=== PATIENT | male | born 1965 | race Caucasian/White ===

== ENCOUNTER 2017-04-06 02:17 | Observation (INO) | payer OTHER ==
[~2017-04-06] VITALS: Ht 188 cm; Wt 93.1 kg
--- NOTE | ~2017-04-06 | HC ---
[facility] [place] [address] CONSULTATION Name: AYLEENOTILIA Roslyn Room #: 301-I [facility] David Bryson#: [id number] Admission: 04/06/17 Attend Phys: Johnathan Pelletier Discharge: Date of : 69 Report #: [id number] THIS REPORT FOR: //name// CC: SUKI physician/PCP Johnathan Pelletier PRIMARY CARE PHYSICIAN: [facility]. CHIEF COMPLAINT: Chest pain. HISTORY OF PRESENT ILLNESS: The patient is a 52-year-old male with a history of multivessel coronary artery disease and prior PCI. He had an episode of resting chest discomfort that woke him up in the middle of the night this morning. It radiated to his left shoulder. It was described as a pressure sensation and severe in nature. By the time he got to the emergency room, his symptoms have resolved. He had been feeling well without any symptoms like this prior to this. He denies any shortness of breath. He denies palpitations or diaphoresis. He has been compliant with his medications, although he had lost his insurance, but he has now reestablished with the [facility] for full care but has not yet seen a venetian blind installer. He has a history of type 2 diabetes with difficult to manage blood sugars and has complications of neuropathy in his lower extremities. He denies symptoms of fevers, chills, cough or weight gain, but he has had some weight loss. PAST MEDICAL HISTORY: He has a history of an inferior myocardial infarction in 2011 and a lateral SD with bare metal stents involving the circumflex. There is a chronic occlusion of the circumflex distally and 70%-75% mid LAD stenosis and a diagonal, which has an ostial 70%-75% stenosis. Diabetes mellitus, hypertension and hyperlipidemia. SOCIAL HISTORY: He is a nonsmoker. PAST SURGICAL HISTORY: No recent surgeries. REVIEW OF SYSTEMS: GASTROINTESTINAL: No abdominal pain, nausea or vomiting. HEMATOLOGIC: No anemia or bleeding disorders. RENAL: No history of kidney failure. NEUROLOGICAL: He has positive neuropathy. Denies headaches, blurry vision or slurred speech. PULMONARY: No cough. [facility] [address] [place] [address] CONSULTATION Name: AYLEENOTILIA Roslyn Room #: 301-I [facility]..#: [id number] Admission: 04/06/17 Attend Phys: Johnathan Pelletier Discharge: Date of : 69 Report #: [id number] GENITOURINARY: No dysuria. ALLERGIES: He has some pain medicines allergies, but no aspirin or Plavix allergies. No contrast dye allergies. PHYSICAL EXAMINATION: VITAL SIGNS: Blood pressure is 147/107. Apparently, his blood pressure last night was elevated more than 200 mmHg during the episode. His pulse this morning is 74 and he is in a sinus rhythm and his O2 sats 98% on room air. GENERAL: Thin, middle-aged male who is alert, oriented, no apparent distress. NECK: Supple. There is no jugular venous distention. CARDIOVASCULAR: Regular. I cannot hear a murmur or S3. LUNGS: Clear to auscultation. ABDOMEN: Soft, nontender and nondistended. EXTREMITIES: There is no peripheral edema. Pulses, radial pulses are intact. Dorsalis pedis pulses are intact. SKIN: Warm and dry. CARDIOLOGICAL DATA: Electrocardiogram demonstrates sinus rhythm, borderline LVH. There are Q-waves in the inferior leads. LABORATORY DATA: Hemoglobin is 12.6; white blood count is 4.4 and platelet count is 166,000. Sodium 136, potassium is 4.0, chloride is 101, BUN is 23 and creatinine is 0.8. Troponin-I is 0.04 and second set is pending. RADIOLOGICAL DATA: Chest x-ray shows normal single view of the chest. IMPRESSION AND PLAN: 1. Angina. His initial cardiac troponin level and ECG are unremarkable with his second set troponin levels are normal. We will plan for an evaluation with a Lexiscan nuclear stress test he likely will have some fixed perfusion defects, but he also has multivessel coronary artery disease. I would like to continue with aspirin and metoprolol. I will plan on adding Imdur, regardless of the stress test result. 2. Coronary artery disease as noted above. 3. Hypertension. Presently, his blood pressure is stable. This will need to be monitored closely. He reports otherwise normal blood pressures at home aside from last night's episode. 4. Diabetes mellitus per hospital colleagues. Because of his insurance, we will follow up at the [facility], which apparently has already been established but he has not been seen yet. By: [id number] Branden Ferrari MD, FACC /nt
--- NOTE | ~2017-04-06 | EKG ---
[place] [address] 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
--- NOTE | ~2017-04-06 | CARDNUC ---
[facility] [address] [place] [address] CARDIAC NUCLEAR IMAGING REPORT Name: AYLEENSAMANTHAOTILIA Roslyn Room #: 301-I [facility]#: [id number] Admission: 04/06/17 Attend Phys: Johnathan Flanagan Discharge: 04/06/17 Date of : 69 Date of Service: 04/06/17 1756 Report #: [id number] THIS REPORT FOR: //name// CC: SUKI physician/PCP Johnathan Pelletier DATE OF SERVICE: 04/06/2017 This is a Lexiscan Cardiolite stress test. VASODILATOR GATED SPECT MYOCARDIAL PERFUSION IMAGING: Regadenoson. REFERRING PHYSICIAN: Placido Sevilla MD. REFERRING FIBERGLASS INSULATION INSTALLER: Branden Ferrari MD, [facility]. DATE OF STUDY: 04/06/2017 INDICATIONS FOR STUDY: Chest pain and dyspnea. RISK FACTORS: Age, hypertension, diabetes and family history. CARDIAC HISTORY: Previous myocardial infarction, coronary artery disease, status post PCI, status post cerebrovascular accident. CARDIAC MEDICATIONS: Metoprolol, lisinopril. GENDER: Male. PROCEDURE: The patient was given 0.4 mg of intravenous regadenoson (Lexiscan) administered over approximately 20 seconds. The patient did complain of chest pain and did require nitroglycerin and fentanyl, additionally required metoprolol. The patient was apparently not given aminophylline. At baseline the BP was 136/94 and the HR was 74; at completion of the regadenoson infusion, peak infusion BP was 145/110 and the HR was 153. At completion of the recovery phase the BP was 189/119 and the HR was 95. The baseline EKG demonstrated normal sinus rhythm with a possible old inferolateral myocardial infarction and nonspecific T abnormalities. The EKG at completion of the administration of regadenoson demonstrated ST depression in the inferior and lateral leads with greater than [address] segment depression present. There was some ST segment elevation in lead 3. The ST segment elevation and the ST segment depression improved with nitroglycerin. This is judged to be a positive EKG findings for ischemia in the context of Lexiscan. Rhythm disturbances included none other than sinus tachycardia. [facility] [address] [place] [address] CARDIAC NUCLEAR IMAGING REPORT Name: AYLEENOTILIA Roslyn Room #: 301-I [facility].#: [id number] Admission: 04/06/17 Attend Phys: Johnathan Flanagan Discharge: 04/06/17 Date of : 69 Date of Service: 04/06/17 1756 Report #: [id number] Gated-SPECT myocardial perfusion imaging was performed using a 1-day imaging protocol and a single isotope technique. The 10.0 mCi of Tc-99m sestamibi was administered intravenously at rest; 33.0 mCi of Tc-99m sestamibi was administered intravenously within 20 seconds of the completion of the administration of regadenoson. Imaging was obtained in the supine position and when feasible, adjunctive stress imaging in the prone position was obtained. FINDINGS: The overall quality of the study was adequate. There was no clear cut evidence of attenuation artifact. There was no evidence of abnormal extracardiac uptake of the radionuclide. The baseline imaging study demonstrates small mild apical defect, a large in size and mildly severe in intensity lateral defect and a small in size and moderate intensity inferior defect. The imaging obtained following the administration of the vasodilator demonstrated a small in size and moderate intensity apical defect or worse apical defect, large in size and severe intensity lateral defect or worse lateral defect and a large in size and moderately severe in intensity inferior defect or larger more severe inferior defect. These prone images were not obtained. These images demonstrate a small mild apical partially reversible defect, a large mild to moderate in intensity lateral partially reversible defect and a large mild to moderate intensity inferior partially reversible defect. These partially reversible defects represent ischemia in the context of an old apicolateral and inferior myocardial infarction, the ischemia appears to be toya-infarctional. On gated analysis the left ventricle demonstrated severe left ventricular systolic dysfunction with global hypokinesis and severe lateral hypokinesis worse than the remainder of the myocardium and moderate severe inferior hypokinesis that was worst in the remainder of the myocardium. The left ventricle was of normal size at rest and did not dilate significantly with administration of the vasodilator. The TID was 1.07. IMPRESSIONS: CLINICAL RESPONSE: Ischemic. STRESS EKG RESPONSE: Ischemic. MYOCARDIAL PERFUSION STUDY: Ischemic with significant toya-infarctional ischemia in the apex lateral wall and inferior mcnair. Overall the amount of ischemia is large. There is evidence of an old infarct involving the apex, lateral wall and inferior wall as well. FUNCTIONAL CAPACITY: Not assessed. CONCLUSIONS: The Lexiscan Cardiolite stress test demonstrates significant toya-infarctional ischemia of a large degree and mild to moderate in severity in [address] [address] CARDIAC NUCLEAR IMAGING REPORT Name: OTILIA ABBASI Room #: 301-I [facility] IN M.R.#: [id number] Admission: 04/06/17 Attend Phys: Johnathan Carlos Flanagan Discharge: 04/06/17 Date of : 69 Date of Service: 04/06/17 1756 Report #: [id number] the apex, lateral wall and inferior mcnair in an area where there was a previous infarct that is in the apex, lateral wall and inferior mcnair. Additionally, there is severe left ventricular systolic dysfunction with global hypokinesis as well as worst segmental wall hypokinesis, overall this is a high risk study. Note that Dr. Ferrari was informed of the result shortly after the nuclear images were read and before this dictation. <ELECTRONICALLY SIGNED> By: Jun Matute MD, FACC 04/07/17 1548 1756 2337 Jun Matute MD, FACC /nt
--- NOTE | ~2017-04-06 | EKG ---
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: Rocco MCLEOD : 1965 Requested By: Lisa Irene Order Number: [id number] MD: Jorge De Jesus Measurements Intervals [place] Rate: 64 P: 13 IN: 160 QRS: -26 QRSD: 113 T: 99 QT: 425 QTc: 439 Interpretive Statements Sinus rhythm Probable left ventricular hypertrophy Nonspecific T abnormalities, lateral leads Compared to ECG 04/06/2017 02:20:22 T-wave abnormality now present Electronically Signed On 04-07-2017 7:36:30 CDT by Jorge De Jesus [email or web address] <ELECTRONICALLY SIGNED> By: Jorge De Jesus MD, [facility] 04/07/17 0736 0940 0940 Jorge De Jesus MD, [facility] /EPI
[~2017-04-06 02:17] MED LIST: AMARYL1 MG PO; AMLODIPINE BESYL5 MG PO; AMLODIPINE PO; ASPIRIN81 M2 PO; AZOR 10-20 MG1 EACH PO; BACTROBAN NASAL1 GM NASAL; CEPHALEXIN 500500 M2 PO; CIPROFLOXACIN500 M1 PO; DOXYCYCLINE 10100 M1 PO; HIBICLENS120 ML TP; HYDROXYZINE HCL25 M1 PO; LANTUS SUBQ; LISINOPRIL40 MG PO; LOPRESSOR25 PO; MECLIZINE HCL12.5 MG PO; MEDROL DOSPAK21 TAB PO; NEURONTIN600 MG PO; NITROGLYCERIN0.4 MG SUBLING; NORVASC10 MG PO; NOVOLOG100 UNIT/1 SUBQ; OMEPRAZOLE 20 M20 MG PO; PACERONE 200 M200 M1 PO; PERCOCET 5-3251 EACH PO; PLAVIX 75 MG TA75 M1 PO; PRAVACHOL40 MG PO; PREDNISONE 20 M20 MG PO; PYRIDIUM200 MG PO; SIMVASTATIN10 MG PO; SOMA250 MG PO; TAMSULOSIN HCL0.4 M1 PO; TRAMADOL 50 MG50 MG PO; TRIPLE ANTIBIO1 EACH TP; ULTRAM 50MG TAB50 MG PO; VALIUM2 MG PO; ZESTRIL10 MG PO; ZOFRAN ODT4 MG PO; ZOFRAN4 MG PO; ZOLOFT25 MG PO; ZPAK PO; [UNRECOGNIZED DRUG - REMARK]
[2017-04-06 02:18] VITALS: BP 148/105
[2017-04-06] MEDS ORDERED: LOPRESSOR50 PO (02:24)
[2017-04-06 02:30] LABS: ABSOLUTE NEUTROPHILS 2.1 thou/uL (1.4-8.2); BASOPHILS 0.5 % (0.0-2.0); EOSINOPHILS 1.6 % (0.0-3.0); HEMATOCRIT 36.3 % (42.0-52.0); HEMOGLOBIN 12.6 gm/dL (14.0-18.0); LYMPHOCYTES 39.1 % (24.0-44.0); MCH 28.6 pg (26.0-34.0); MCHC 34.7 g/dL (28.0-37.0); MCV 82.4 fL (80.0-100.0); MONOCYTES 11.1 % (1.0-8.0); PLATELET COUNT 166 thou/uL (150-400); POLYS 47.7 % (36.0-66.0); WBC 4.4 thou/uL (4.0-11.0)
[2017-04-06 02:31] LABS: MANUAL DIFF NO
[2017-04-06 02:41] LABS: ANION GAP 11 mmol/L (7-16); BUN 14 mg/dL (7-18); CALCIUM 8.1 mg/dL (8.5-10.1); CHLORIDE 101 mmol/L (98-107); CO2 24 mmol/L (21-32); CREATININE 0.8 mg/dL (0.7-1.3); GLUCOSE 352 mg/dL (74-106); SODIUM 136 mmol/L (136-145)
[2017-04-06 02:44] LABS: TROPONIN-I < 0.04 ng/mL (<0.04-0.07)
[2017-04-06 03:46] VITALS: BP 136/88
[2017-04-06 05:14] VITALS: BP 147/107
[2017-04-06 07:20] VITALS: BP 144/105
[2017-04-06 09:03] LABS: CHOLESTEROL 213 mg/dL (<200); HDL CHOLESTEROL 31 mg/dL (>40); TC:HDL 6.9 Ratio (Not establshd); TRIGLYCERIDE 542 mg/dL (<150); VLDL 108 mg/dL (<40)
[2017-04-06 15:30] VITALS: BP 135/105
[2017-04-07 05:10] LABS: GLYCOHEMOGLOBIN (HGB A1C) 11.3 % (4.8-5.6)
== END 2017-04-06 18:30 | disposition left against medical advice (07) ==
LOC: ER 02:17 → EROBS 03:31 → 3N 03:31 → EROBS 03:31 → 3N 03:49
PROVIDERS: Emergency Medicine; Nurse Practitioner Acute Care
DX: I25.119 Atherosclerotic heart disease of native coronary artery with unspecified angina pectoris (principal); I16.0 Hypertensive urgency; E78.5 Hyperlipidemia, unspecified; E11.9 Type 2 diabetes mellitus without complications; Z79.4 Long term (current) use of insulin; Z79.899 Other long term (current) drug therapy; Z95.5 Presence of coronary angioplasty implant and graft
CPT/HCPCS: 23017; 23031

== ENCOUNTER 2017-07-04 20:46 | Inpatient (IN) | payer OTHER ==
[~2017-07-04] VITALS: Ht 188 cm; Wt 94.3 kg
--- NOTE | ~2017-07-04 | HC ---
[facility] [place] [address] CONSULTATION Name: AYLEENOTILIA Mcgowan Room #: 420-P ADM IN M.R.#: [id number] Admission: 07/04/17 Attend Phys: Darwin Thibodeaux MD Discharge: Date of : 69 Report #: [id number] THIS REPORT FOR: //name// CC: Darwin Thibodeaux [facility] physician/PCP REASON FOR CONSULTATION: I was asked to evaluate concerning bilateral infected foot wounds in the setting of diabetes. HISTORY OF PRESENT ILLNESS: The patient was a 52-year-old with underlying history of diabetes, peripheral neuropathy, vasculopathy and hypertension who about a month ago walked on some hot concrete and suffered paulino to both plantar surfaces of his feet. This was treated at [facility] with wound care and antibiotics. He completed his course of antibiotics and thought he was doing well until about a week ago, he noticed increased blister formation. Associated with this, he developed some nausea, malaise and low-grade fever. Went back to the Emergency Room and was going to be hospitalized but left and then came to [facility]. Further workup shows evidence of significant vascular obstruction and is scheduled to have a CT angiogram with possible stenting today. He has been placed on vancomycin and Unasyn. He has had poor control of his blood glucose levels. X-rays of his feet showed no evidence of bony change. ALLERGIES: HYDROCODONE AND METFORMIN. MEDICATIONS: As noted on his MAR including vancomycin and Unasyn. PAST MEDICAL HISTORY: [place], cardiac stents, stroke, diabetes, hypertension, hyperlipidemia and peripheral neuropathy. SOCIAL HISTORY: Nonsmoker. No significant alcohol intake. FAMILY HISTORY: Noncontributory. REVIEW OF SYSTEMS: Denies any cardiopulmonary, GI or complaints. PHYSICAL EXAMINATION: VITAL SIGNS: Afebrile and hemodynamically stable. GENERAL: The patient was alert and cooperative. HEENT: Unremarkable. CHEST: Clear. HEART: Regular. ABDOMEN: Soft. He had decreased pulses in the left femoral compared to the right. Barely palpable pulses on the left with 2+ on the right. He had peripheral neuropathy to his ankles bilaterally. There were ulcerations to the plantar heel, full thickness, on the left and again full thickness on the right with also blistering ulceration over the second toe and second metatarsal region [address] [address] CONSULTATION Name: OTILIA ABBASI Room #: 420-P [facility] IN M.R.#: [id number] Admission: 07/04/17 Attend Phys: Darwin Thibodeaux MD Discharge: Date of : 69 Report #: [id number] on the plantar skin. These areas were tender to palpation. No purulent drainage was identified. Mild surrounding erythema around the heels. LABORATORY STUDIES: Sodium 135, potassium 3.9, bicarb 26, creatinine 0.8. Blood glucose earlier today was 380. Liver function tests normal. Hemoglobin 9.3, WBC 5.4, platelet count 190,000. Differential was unremarkable on admission. Urinalysis, 3+ glucose, otherwise unremarkable. Blood cultures are pending. No wound cultures performed. IMPRESSION: Bilateral infected plantar wounds in the setting of poorly controlled diabetes. He has peripheral vascular disease, which is going to be addressed. He has peripheral neuropathy. PLAN: Recommend continuing antibiotic coverage. We will swab for MRSA screen. We would also cover for pseudomonas considering location of these wounds. <ELECTRONICALLY SIGNED> By: Gurvinder Loya MD 07/08/17 0955 1158 2048 Gurvinder Loya MD /nt
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
[~2017-07-04 20:46] MED LIST changes: +LOPRESSOR50 PO
[2017-07-04 20:56] VITALS: BP 141/72
[2017-07-04] MEDS ORDERED: CLOPIDOGREL75 MG PO (21:00)
[2017-07-04 21:33] LABS: URINE BILIRUBIN NEGATIVE (Negative); URINE BLOOD NEGATIVE (Negative); URINE COLOR YELLOW; URINE GLUCOSE-RANDOM* 3+ (Negative); URINE KETONES NEGATIVE (Negative); URINE NITRITE NEGATIVE (Negative); URINE PROTEIN (DIPSTICK) NEGATIVE (Negative); URINE SPECIFIC GRAVITY <= 1.005 (1.003-1.035); URINE UROBILINOGEN 0.2 E.U./dl (0.2-1.0)
[2017-07-04 21:44] LABS: HEMATOCRIT 31.3 % (42.0-52.0); HEMOGLOBIN 10.9 gm/dL (14.0-18.0); MCH 28.3 pg (26.0-34.0); PLATELET COUNT 244 thou/uL (150-400); RBC 3.86 mil/uL (4.50-6.00); RDW 13.2 % (10.5-14.5); WBC 7.6 thou/uL (4.0-11.0)
[2017-07-04 21:49] LABS: MANUAL DIFF YES
[2017-07-04 22:00] LABS: CALCIUM 8.9 mg/dL (8.5-10.1); CREATININE 1.1 mg/dL (0.7-1.3); POTASSIUM 4.1 mmol/L (3.5-5.1)
[2017-07-04 22:06] LABS: ALBUMIN 2.8 g/dL (3.4-5.0); TOTAL BILIRUBIN 0.6 mg/dL (<0.1-1.0); TOTAL PROTEIN 7.4 g/dL (6.4-8.2)
[2017-07-04 22:44] LABS: ABSOLUTE NEUTROPHILS 5.1 thou/uL (1.4-8.2); MYELOCYTES 1 %; TOTAL CELL COUNT 100
[2017-07-04 22:46] LABS: LARGE PLATELETS OCCASIONAL
[2017-07-04 22:52] VITALS: BP 145/96
[2017-07-04 23:27] VITALS: BP 144/90
[2017-07-05 00:08] VITALS: BP 126/90
[2017-07-05 04:30] VITALS: BP 119/67
[2017-07-05 06:42] LABS: HEMATOCRIT 27.4 % (42.0-52.0); HEMOGLOBIN 9.3 gm/dL (14.0-18.0); MCH 27.9 pg (26.0-34.0); MCHC 34.1 g/dL (28.0-37.0); MCV 81.7 fL (80.0-100.0); PLATELET COUNT 217 thou/uL (150-400); RBC 3.35 mil/uL (4.50-6.00); RDW 13.6 % (10.5-14.5)
[2017-07-05 06:45] LABS: MANUAL DIFF YES
[2017-07-05 07:29] LABS: ABSOLUTE NEUTROPHILS 3.3 thou/uL (1.4-8.2); TOTAL CELL COUNT 100
[2017-07-05 07:30] LABS: ANISOCYTOSIS 1+; HYPOCHROMASIA 1+; MICROCYTES 1+
[2017-07-05 08:00] VITALS: BP 147/91
[2017-07-05 15:45] VITALS: BP 120/78
[2017-07-05 20:13] VITALS: BP 128/75
[2017-07-06 03:27] VITALS: BP 111/76
[2017-07-06 06:23] LABS: HEMATOCRIT 30.1 % (42.0-52.0); HEMOGLOBIN 10.3 gm/dL (14.0-18.0); MCHC 34.3 g/dL (28.0-37.0); MCV 81.9 fL (80.0-100.0); RBC 3.67 mil/uL (4.50-6.00); RDW 13.4 % (10.5-14.5); WBC 4.9 thou/uL (4.0-11.0)
[2017-07-06 06:33] LABS: CALCIUM 9.1 mg/dL (8.5-10.1); CREATININE 0.8 mg/dL (0.7-1.3)
[2017-07-06 08:00] VITALS: BP 116/71
[2017-07-06 16:00] VITALS: BP 106/65
[2017-07-06 19:41] VITALS: BP 125/79
[2017-07-07 04:59] VITALS: BP 119/84
[2017-07-07 06:06] LABS: HEMOGLOBIN 9.3 gm/dL (14.0-18.0); MCH 27.4 pg (26.0-34.0); MCHC 33.1 g/dL (28.0-37.0); MCV 82.8 fL (80.0-100.0); RBC 3.38 mil/uL (4.50-6.00); RDW 13.4 % (10.5-14.5); WBC 5.4 thou/uL (4.0-11.0)
[2017-07-07 06:14] LABS: CALCIUM 8.6 mg/dL (8.5-10.1); CREATININE 0.8 mg/dL (0.7-1.3); POTASSIUM 3.9 mmol/L (3.5-5.1)
[2017-07-07 06:59] VITALS: BP 125/79
[2017-07-07 07:55] VITALS: BP 121/80
[2017-07-07 11:15] VITALS: BP 115/77
[2017-07-07 20:30] VITALS: BP 122/84
[2017-07-08 04:30] VITALS: BP 145/99
[2017-07-08 05:47] LABS: HEMATOCRIT 31.2 % (42.0-52.0); HEMOGLOBIN 10.4 gm/dL (14.0-18.0); MCH 27.2 pg (26.0-34.0); MCHC 33.3 g/dL (28.0-37.0); MCV 81.6 fL (80.0-100.0); RBC 3.82 mil/uL (4.50-6.00); RDW 13.4 % (10.5-14.5); WBC 7.1 thou/uL (4.0-11.0)
[2017-07-08 06:01] LABS: CALCIUM 9.3 mg/dL (8.5-10.1); CREATININE 0.8 mg/dL (0.7-1.3); POTASSIUM 4.1 mmol/L (3.5-5.1)
[2017-07-08 07:54] VITALS: BP 122/78
[2017-07-08] MEDS ORDERED: AUGMENTIN 875875 MG PO (11:46)
[2017-07-08] MEDS ORDERED: OXYCODONE HCL10 MG PO (11:47)
[2017-07-08] MEDS ORDERED: NEURONTIN 300300 M1 PO (11:47)
[2017-07-08] MEDS ORDERED: ATORVASTATIN CA40 MG PO (11:48)
[2017-07-08 13:33] VITALS: BP 122/78
[2017-07-08 15:01] VITALS: BP 122/78
== END 2017-07-08 16:06 | disposition home or self-care (01) | DRG 580 ==
LOC: ER 20:46 → 4E 22:31 → EROBS 22:31 → 4E 23:35
PROVIDERS: Hospitalist; Nuclear Medicine Nuclear Cardiology; Nurse Practitioner Family; Physician Assistant
PROC: B41D1ZZ Fluoroscopy of Aorta and Bilateral Lower Extremity Arteries using Low Osmolar Contrast (ICD-10-PCS; principal; 2017-07-07)
PROC: B4181ZZ Fluoroscopy of Bilateral Renal Arteries using Low Osmolar Contrast (ICD-10-PCS; principal; 2017-07-07)
PROC: 047L34Z Dilation of Left Femoral Artery with Drug-eluting Intraluminal Device, Percutaneous Approach (ICD-10-PCS; principal; 2017-07-07)
DX: L03.115 Cellulitis of right lower limb (principal); E44.0 Moderate protein-calorie malnutrition; L03.116 Cellulitis of left lower limb; E11.621 Type 2 diabetes mellitus with foot ulcer; I10 Essential (primary) hypertension; E78.5 Hyperlipidemia, unspecified; I25.10 Atherosclerotic heart disease of native coronary artery without angina pectoris; E11.42 Type 2 diabetes mellitus with diabetic polyneuropathy; E11.65 Type 2 diabetes mellitus with hyperglycemia; B95.62 Methicillin resistant Staphylococcus aureus infection as the cause of diseases classified elsewhere; I73.9 Peripheral vascular disease, unspecified; I77.1 Stricture of artery; Z68.26 Body mass index [BMI] 26.0-26.9, adult; Z79.4 Long term (current) use of insulin; I25.2 Old myocardial infarction; Z88.8 Allergy status to other drugs, medicaments and biological substances; Z79.899 Other long term (current) drug therapy; Z95.5 Presence of coronary angioplasty implant and graft; Z86.73 Personal history of transient ischemic attack (TIA), and cerebral infarction without residual deficits

== ENCOUNTER 2017-07-25 15:52 | Inpatient (IN) | payer OTHER ==
[~2017-07-25] VITALS: Ht 188 cm; Wt 85.7 kg
--- NOTE | ~2017-07-25 | HC ---
[facility] [address] CONSULTATION Name: OTIILA ABBASI Room #: 455-P ADM IN M.R.#: [id number] Admission: 07/25/17 Attend Phys: Deni Thomas DO Discharge: Date of : 69 Report #: [id number] THIS REPORT FOR: //name// CC: SUKI physician/PCP Deni Thomas DATE OF SERVICE: 07/26/2017 CHIEF COMPLAINT: Bilateral foot ____ ulcerations. HISTORY OF PRESENT ILLNESS: This is a 52-year-old white male with a history of diabetes with peripheral neuropathy. He apparently had walked on hot concrete about a month ago and sustained pauilno to his feet. He did not recognize that he had the paulino due to his diabetic neuropathy. He has had progressive drainage and odor and has been admitted. I have been asked to see him with regard to wound care. The patient states that his blood sugars have been a little bit uncontrolled. He denies any pain associated with this medication. PAST MEDICAL HISTORY: Positive for diabetic foot ulcers, hyperglycemia and diabetes with peripheral neuropathy. MEDICATIONS: Include insulin, omeprazole, tamsulosin, Zestril, Lopressor, clopidogrel. PAST SURGICAL HISTORY: The patient does have a history of previous myocardial infarction with stents and previous cerebrovascular accident. SOCIAL HISTORY: Negative for alcohol or tobacco use. Negative for drug use. FAMILY HISTORY: Noncontributory. REVIEW OF SYSTEMS: CONSTITUTIONAL: The patient denies fever, chills or weight loss. NEUROLOGICAL: The patient does complain of peripheral neuropathy. Denies focal weakness. ENT: The patient denies earache, nasal drainage or sore throat. CARDIOVASCULAR: The patient denies chest pain, palpitations or diaphoresis. PULMONARY: The patient denies cough or shortness of breath. GASTROINTESTINAL: The patient denies nausea, vomiting, diarrhea or abdominal pain. ORTHOPEDIC: The patient does note the ulcerations and the drainage from both lower extremities. Denies pain or swelling. GENITOURINARY: The patient denies frequency or urgency of urination. Denies dysuria. present, frequency, urgency of urination. Denies dysuria. DERMATOLOGIC: The patient denies rashes, but does note the ulcerations on both [facility] [address] [address] CONSULTATION Name: OTILIA ABBASI Room #: 455-P [facility] IN [facility].#: [id number] Admission: 07/25/17 Attend Phys: Deni Thomas DO Discharge: Date of : 69 Report #: [id number]. ENDOCRINE: The patient denies heat or cold intolerance, polydipsia, polyphagia or polyuria. Other systems are negative. PHYSICAL EXAMINATION: VITAL SIGNS: At this time include pulse 60, respiratory rate of 18, blood pressure 100/66, temperature 98.1. GENERAL: This is a chronically ill-appearing male patient who appears in minimal distress. HEENT: Head normocephalic. Nose and throat clear. NECK: Supple. LUNGS: Clear. HEART: Regular rhythm. ABDOMEN: Soft. Bowel sounds present. EXTREMITIES: Demonstrate easily palpable distal pulses with normal hair growth on his toes. He has some hammertoe deformity consistent with muscle wasting from diabetic neuropathy. He has ulceration to the plantar aspect of both feet including both heels as well as the ball of the right foot. There is moderate callus present bilaterally. On the right side, these areas are superficial. On the left side, there is a tunnel that leads close to the calcaneus. There is some drainage, minimal odor. NEUROLOGIC: He is alert, moving all 4 extremities. LABORATORY DATA: Includes sodium 135, potassium 3.3, chloride 100, CO2 of 25, BUN is 13, creatinine is 0.9, glucose 313, calcium is 8.7. White blood cell count 5.4 with a hemoglobin of 11.8, hematocrit of 35.1, platelet count 241,000. CLINICAL IMPRESSION: 1. Diabetic foot ulceration to bilateral lower extremities possibly following paulino after walking on hot concrete. 2. Severe peripheral neuropathy. 3. Peripheral arterial disease, status post left superficial femoral artery 90% stenosis and subsequent angioplasty with stent placement. 4. History of right superficial femoral artery 50% stenosis with no intervention. RECOMMENDATIONS: At this point in time, we will check an MRI to evaluate for underlying osteomyelitis. Additionally, we will check an arterial Doppler to evaluate the patency of the stent on the left side. Recommend moist gauze dressings in the interim. All questions were answered. I appreciate being asked to see him in consultation. <ELECTRONICALLY SIGNED> By: Darío Zurita MD 07/27/17 1719 [id number] [id number] Darío Zurita MD /nt
--- NOTE | ~2017-07-25 | EKG ---
[place] [address] [facility] [place] [address] ELECTROCARDIOGRAM REPORT Name: AYLEENOTILIA Mcgowan Room #: 455-P ADM IN M.R.#: [id number] Admission: 07/25/17 Attend Phys: Deni Thomas DO Discharge: Date of : 69 Report #: [id number] THIS REPORT FOR: //name// [facility] Test Date: 2017-07-27 Test Time: 16:14:34 Pat Name: OTILIA ABBASI Department: Room: 455 P Gender: M Inspector Eyeglass Frames: Trish DAWSON : 1965 Requested By: Gurvinder Loya Order Number: [id number] MD: Jorge De Jesus Measurements Intervals [place] Rate: 66 P: 12 MS: 150 QRS: -32 QRSD: 108 T: 79 QT: 412 QTc: 432 Interpretive Statements Sinus rhythm Nonspecific T wave abnormality Compared to ECG 07/25/2017 16:37:21 no significant change was found Electronically Signed On 07-28-2017 8:25:16 CDT by Jorge De Jesus [email or web address] <ELECTRONICALLY SIGNED> By: Jorge De Jesus MD, [facility] 07/28/17 0825 161 13 Jorge De Jesus MD, [facility] /EPI
--- NOTE | ~2017-07-25 | HC ---
[facility] [place] [address] CONSULTATION Name: OTILIA ABBASI Room #: 455-P ADM IN M.R.#: [id number] Admission: 07/25/17 Attend Phys: Deni Thomas DO Discharge: Date of : 69 Report #: [id number] THIS REPORT FOR: //name// CC: SUKI physician/PCP Deni Thomas INFECTIOUS DISEASE CONSULTATION REASON FOR CONSULTATION: I was asked to evaluate concerning diabetic foot infection. HISTORY OF PRESENT ILLNESS: The patient is a 52-year-old with long-standing diabetes, peripheral neuropathy who ____ the bottom of his feet in the mid portion of June. He was hospitalized on 07/04 through 07/09. Cultures had revealed MRSA from one of his wounds to the bottom of his feet. He was treated with broad-spectrum IV antibiotic therapy. Was ultimately discharged on Augmentin. He was scheduled for a 2-week followup, but has not yet completed that followup visit. He returned with increased pain, swelling and drainage from his left heel wound. Blood sugar control has been poor with sugars in the high 200s. Mild nausea and anorexia. No fever, chills or sweats. ALLERGIES: HYDROCODONE, METFORMIN. MEDICATIONS: As noted on his JAN, now on vancomycin and Zosyn. PAST MEDICAL HISTORY: [place], stroke, diabetes, hypertension, hyperlipidemia and peripheral neuropathy. SOCIAL HISTORY: Nonsmoker, no significant alcohol intake. FAMILY HISTORY: Noncontributory. REVIEW OF SYSTEMS: As noted above with no additions including no cardiopulmonary or complaints. PHYSICAL EXAMINATION: VITAL SIGNS: He is afebrile, hemodynamically stable. GENERAL: He is alert and cooperative and pleasant, in no acute distress. SKIN: Unremarkable other than his extremity examination. LYMPHATIC: Unremarkable. CHEST: Clear. HEART: Regular. ABDOMEN: Soft and nontender. The plantar aspect of his right foot had a fairly shallow wound over the mid metatarsal area of his forefoot. Otherwise, had callus and eschar to the mid foot and to the heel region. On his left foot had a fairly large odorous draining wound, which did tunnel several centimeters involving the plantar heel. Mild surrounding erythema. Pulses in his feet were [facility] [address] [place] [address] CONSULTATION Name: OTILIA ABBASI Room #: 455-P ADM IN M.R.#: [id number] Admission: 07/25/17 Attend Phys: Deni Thomas DO Discharge: Date of : 69 Report #: [id number] diminished. He had some tenderness along the left mid thigh region same area that he had his stent placed. LABORATORY DATA: Sodium 135, potassium 3.3, bicarb 25, creatinine 0.9. Liver function test normal. Hemoglobin 11.8; WBC 5.4; platelet count 241,000. Sedimentation rate 58. Urinalysis: 3+ glucose. Blood, urine and foot wound culture are pending. IMPRESSION: A 52-year-old diabetic with peripheral neuropathy, peripheral vascular disease, nonhealing wound to the left plantar heel region. I am concerned that he is now out 3 weeks from his initial presentation. Could be developing osteomyelitis in the region. I am also concerned about his vascular supply. Recommend continuing intravenous antibiotics, pending cultures. Check arterial studies to the left leg and MRI scan of the foot. I discussed with wound care team. Duration of his antibiotics will depend upon our findings going forward. By: 1554 0228 Gurvinder Loya MD /nt
--- NOTE | ~2017-07-25 | EKG ---
[address] [place] [address] ELECTROCARDIOGRAM REPORT Name: OTILIA ABBASI Room #: 455-P ADM IN M.R.#: [id number] Admission: 07/25/17 Attend Phys: Deni Thomas DO Discharge: Date of : 69 Report #: [id number] THIS REPORT FOR: //name// [facility] ED Test Date: 2017-07-25 Test Time: 16:37:21 Pat Name: OTILIA ABBASI Department: Room: [facility] Gender: M Supervisor Denture Department: [id number] : 1965 Requested By: Sue Umaña Order Number: [id number] MD: Jorge De Jesus Measurements Intervals [place] Rate: 93 P: 44 [place]: 150 QRS: -41 QRSD: 109 T: 80 QT: 370 QTc: 461 Interpretive Statements Sinus rhythm Left axis deviation Abnormal R-wave progression, early transition Compared to ECG 04/06/2017 09:40:32 Left-axis deviation now present Electronically Signed On 07-26-2017 7:57:41 CDT by Jorge De Jesus [email or web address] <ELECTRONICALLY SIGNED> By: Jorge De Jesus MD, [facility] 07/26/17 0757 1637 163 Jorge De Jesus MD, [facility] /EPI
[2017-07-25 15:52] VITALS: BP 149/112
[~2017-07-25 15:52] MED LIST changes: +ATORVASTATIN CA40 MG PO; +AUGMENTIN 875875 MG PO; +CLOPIDOGREL75 MG PO; +NEURONTIN 300300 M1 PO; +OXYCODONE HCL10 MG PO
[2017-07-25 17:03] LABS: ABSOLUTE NEUTROPHILS 3.6 thou/uL (1.4-8.2); BASOPHILS 0.5 % (0.0-2.0); EOSINOPHILS 1.5 % (0.0-3.0); HEMATOCRIT 35.1 % (42.0-52.0); HEMOGLOBIN 11.8 gm/dL (14.0-18.0); MCH 27.2 pg (26.0-34.0); MCHC 33.8 g/dL (28.0-37.0); MCV 80.5 fL (80.0-100.0); MONOCYTES 10.4 % (1.0-8.0); PLATELET COUNT 241 thou/uL (150-400); POLYS 66.6 % (36.0-66.0); RBC 4.36 mil/uL (4.50-6.00); RDW 14.1 % (10.5-14.5); WBC 5.4 thou/uL (4.0-11.0)
[2017-07-25 17:12] LABS: CALCIUM 9.6 mg/dL (8.5-10.1); CREATININE 1.2 mg/dL (0.7-1.3); POTASSIUM 4.2 mmol/L (3.5-5.1)
[2017-07-25 17:17] LABS: MANUAL DIFF NO
[2017-07-25 17:18] LABS: URINE BILIRUBIN NEGATIVE (Negative); URINE BLOOD NEGATIVE (Negative); URINE COLOR YELLOW; URINE GLUCOSE-RANDOM* 3+ (Negative); URINE KETONES NEGATIVE (Negative); URINE NITRITE NEGATIVE (Negative); URINE PROTEIN (DIPSTICK) NEGATIVE (Negative); URINE SPECIFIC GRAVITY 1.015 (1.003-1.035); URINE UROBILINOGEN 0.2 E.U./dl (0.2-1.0)
[2017-07-25 17:18] LABS: ALBUMIN 3.2 g/dL (3.4-5.0); TOTAL BILIRUBIN 0.3 mg/dL (<0.1-1.0); TOTAL PROTEIN 7.7 g/dL (6.4-8.2)
[2017-07-25 18:14] VITALS: BP 151/106
[2017-07-25 18:46] VITALS: BP 179/107
[2017-07-25 19:17] VITALS: BP 170/106
[2017-07-26] VITALS: BP 139/95
[2017-07-26 05:25] VITALS: BP 103/71
[2017-07-26 06:01] LABS: CALCIUM 8.7 mg/dL (8.5-10.1); CREATININE 0.9 mg/dL (0.7-1.3); POTASSIUM 3.3 mmol/L (3.5-5.1)
[2017-07-26 08:06] VITALS: BP 133/94
[2017-07-26 16:00] VITALS: BP 100/66
[2017-07-26 20:05] VITALS: BP 110/65
[2017-07-27 03:45] LABS: HEMATOCRIT 28.6 % (42.0-52.0); MCHC 33.3 g/dL (28.0-37.0); MCV 81.2 fL (80.0-100.0); RBC 3.53 mil/uL (4.50-6.00); RDW 14.4 % (10.5-14.5); WBC 2.6 thou/uL (4.0-11.0)
[2017-07-27 03:53] LABS: HEMOGLOBIN 9.5 gm/dL (14.0-18.0); PLATELET COUNT 139 thou/uL (150-400)
[2017-07-27 03:54] LABS: MANUAL DIFF YES
[2017-07-27 03:59] LABS: CALCIUM 8.5 mg/dL (8.5-10.1); POTASSIUM 3.9 mmol/L (3.5-5.1)
[2017-07-27 04:22] VITALS: BP 123/74
[2017-07-27 05:33] LABS: ABSOLUTE NEUTROPHILS 1.1 thou/uL (1.4-8.2); ATYPICAL LYMPHS 7 %; TOTAL CELL COUNT 100
[2017-07-27 07:28] VITALS: BP 109/68
[2017-07-27 11:55] VITALS: BP 115/77
[2017-07-27 15:34] VITALS: BP 92/60
[2017-07-27 19:54] VITALS: BP 131/78
[2017-07-28 04:37] VITALS: BP 138/91
[2017-07-28 08:49] VITALS: BP 116/71
[2017-07-28 12:33] VITALS: BP 125/79
[2017-07-28 16:37] VITALS: BP 130/80
[2017-07-28 20:13] VITALS: BP 130/88
[2017-07-29 03:58] VITALS: BP 111/76
[2017-07-29] MEDS ORDERED: XANAX 0.25 MG0.25 MG PO (08:40)
[2017-07-29 09:50] VITALS: BP 109/78
[2017-07-29] MEDS ORDERED: AUGMENTIN 875-1 EACH PO (11:25)
[2017-07-29 12:10] VITALS: BP 96/66
[2017-07-29 13:18] VITALS: BP 96/66
== END 2017-07-29 13:57 | disposition home or self-care (01) | DRG 872 ==
LOC: ER 15:52 → 4W 18:03 → EROBS 18:03 → 4W 18:47 → ENTRNSPT 07-29 13:39 → EDTRNSPTSTS 07-29 13:44 → 4W 07-29 13:57
PROVIDERS: Family Medicine; Physician Assistant
DX: A41.9 Sepsis, unspecified organism (principal); L03.90 Cellulitis, unspecified; I10 Essential (primary) hypertension; E78.5 Hyperlipidemia, unspecified; E11.621 Type 2 diabetes mellitus with foot ulcer; E11.42 Type 2 diabetes mellitus with diabetic polyneuropathy; R65.20 Severe sepsis without septic shock; E11.51 Type 2 diabetes mellitus with diabetic peripheral angiopathy without gangrene; Z79.899 Other long term (current) drug therapy; Z91.19 Patient's noncompliance with other medical treatment and regimen; Z88.6 Allergy status to analgesic agent; Z65.5 Exposure to disaster, war and other hostilities; Z86.73 Personal history of transient ischemic attack (TIA), and cerebral infarction without residual deficits; I25.2 Old myocardial infarction
CPT/HCPCS: 10045

== ENCOUNTER 2019-05-28 21:01 | Emergency (ER) | payer OTHER ==
[~2019-05-28] VITALS: Ht 188 cm; Wt 88.5 kg
[~2019-05-28 21:01] MED LIST changes: +AUGMENTIN 875-1 EACH PO; +XANAX 0.25 MG0.25 MG PO
[2019-05-28 22:33] VITALS: BP 129/88
== END 2019-05-28 22:34 | disposition home or self-care (01) ==
LOC: ER 21:01
DX: S01.112A Laceration without foreign body of left eyelid and periocular area, initial encounter (principal); M25.511 Pain in right shoulder; I10 Essential (primary) hypertension; E78.5 Hyperlipidemia, unspecified; E11.40 Type 2 diabetes mellitus with diabetic neuropathy, unspecified; Z79.4 Long term (current) use of insulin; Z88.8 Allergy status to other drugs, medicaments and biological substances; Z86.73 Personal history of transient ischemic attack (TIA), and cerebral infarction without residual deficits; Z95.5 Presence of coronary angioplasty implant and graft; W01.0XXA Fall on same level from slipping, tripping and stumbling without subsequent striking against object, initial encounter; Y92.89 Other specified places as the place of occurrence of the external cause; Y93.89 Activity, other specified; Y99.8 Other external cause status

== ENCOUNTER 2021-08-28 11:02 | Inpatient (IN) | payer OTHER ==
[~2021-08-28] VITALS: Ht 188 cm; Wt 83.5 kg
[2021-08-28] VITALS (14 sets, daily range): BP systolic 110–240; BP diastolic 74–153
--- NOTE | ~2021-08-28 | EMS ---
[address] [address] EMS Patient Care Report Name: OTILIA ABBASI Room #: REG NATALIE Bryson#: [id number] Admission: 08/28/21 Attend Phys: Discharge: Date of : 69 Report #: [id number] THIS REPORT FOR: //name// Report Transmitted: 08/28/2021 11:29 EMS Care Summary [facility] Incident [id number] @ 08/28/2021 10:23 Incident Location [address] [place] [address] Patient OTILIA ABBASI Male, 56 Years 1965 Patient Address [address] [place] [address] Patient History Diabetes,Hypertension (HTN),Stroke/CVA,Coronary Artery Bypass Graft (CABG), Patient Allergies No known allergies, Patient Medications Other, Tramadol, Sildenafil, Carvedilol, Hydroxyzine, Atorvastatin, Insulin, Clopidogrel, Omeprazole, Aspirin, Unknown, Gabapentin, Tamsulosin, Losartan, Chief Complaint abdominal pain Disposition Transported No Lights/[place] Reason Chest Pain (Non-Traumatic) Transported To [facility] Narrative Pt is found laying supine on a couch in living room in no acute distress. Pt states that he has had night sweats and vomiting and yells at his mother to talk for him. He also yells for his daughter to come talk for him. Pt is [address] [address] EMS Patient Care Report Name: OTILIA ABBASI Room #: REG [facility].#: [id number] Admission: 08/28/21 Attend Phys: Discharge: Date of : 69 Report #: [id number] asked to tell the story for himself as he is able to yell and talk. Pt states that he has had N/V, night sweats and abdominal pain for about 4 weeks now. He states that he has been seen at [facility] twice in the ER with no acceptable dx he states. He states that the first time he was dx with high BG and the second constipation. Pt states that these symptoms wax and wane in intensity. He states that today is not the worst that he has felt, but he states that he knows that the symptoms will get worse and he wants transport now. Pt states that he had night sweats last night and vomiting starting this morning. He states that he has been dry heaving and now he is having chest pain. Pt also c/o headache. He states that when he was not feeling well last night he did not take his insulin, and states that he has been unable to take his HTN because of vomiting. Pt states that his daughter has also been ill with N/V, but he states that was a few weeks ago, and both were tested for COVID and negative. Pt is able to self move to the cot from the couch where he is seated and secured without incident. Pt is able to self move to ER bed without incident and report to Dr. Lucero. Initial Vitals @10:53P: 152,SpO2: 94, @10:37P: 151,IL Suspected: false @10:45P: 151,SpO2: 99, @10:41P: 151,SpO2: 99, @10:50P: 151,SpO2: 98, @10:38P: 152,IL Suspected: false @10:43P: 150,R: 20,BP: 210/150,SpO2: 98, @10:58P: 144,R: 20,BP: 212/131,SpO2: 100, @10:47P: 153,R: 18,BP: 223/147,SpO2: 100, @10:31Temp: 97.7F, @10:34P: 149,R: 22,BP: 232/149,Pain: 10/10,GCS: 15,SpO2: 99,Revised Trauma: 12, Impression Diabetic Hyperglycemia Procedures @10:40StretcherResponse: Unchanged@10:40Surgical Mask on PatientResponse: Unchanged@10:49Normal Saline (.9% NaCl) 100cc (20 ga) Site: Hand-LeftResponse: UnchangedSucceeded@10:56Ondansetron - 4 Milligrams (mg) - Intravenous (IV)Response: Unchanged@10:3812-Lead ECG Timeline 10:21,Call Received 10:21,Psap Call 10:23,Dispatched 10:24,En Route [address] [address] EMS Patient Care Report Name: OTILIA ABBASI Room #: REG NATALIE Bryson#: [id number] Admission: 08/28/21 Attend Phys: Discharge: Date of : 69 Report #: [id number] 10:29,On Scene 10:30,At Patient 10:31,BP: / M,PULSE: ,RR: R,SPO2: Ox,ETCO2: ,BG: ,PAIN: ,GCS: , 10:34,BP: 232/149 M,PULSE: 149,RR: 22 R,SPO2: 99 Ox,ETCO2: ,BG: ,PAIN: 10,GCS: 15, 10:37,BP: / M,PULSE: 151,RR: R,SPO2: Ox,ETCO2: ,BG: ,PAIN: ,GCS: , 10:38,12-Lead ECG, 10:38,BP: / M,PULSE: 152,RR: R,SPO2: Ox,ETCO2: ,BG: ,PAIN: ,GCS: , 10:40,Stretcher,Response: Unchanged 10:40,Surgical Mask on Patient,Response: Unchanged 10:41,BP: / M,PULSE: 151,RR: R,SPO2: 99 Ox,ETCO2: ,BG: ,PAIN: ,GCS: , 10:43,BP: 210/150 M,PULSE: 150,RR: 20 R,SPO2: 98 Ox,ETCO2: ,BG: ,PAIN: ,GCS: , 10:45,BP: / M,PULSE: 151,RR: R,SPO2: 99 Ox,ETCO2: ,BG: ,PAIN: ,GCS: , 10:46,Depart Scene 10:47,BP: 223/147 M,PULSE: 153,RR: 18 R,SPO2: 100 Ox,ETCO2: ,BG: ,PAIN: ,GCS: , 10:49,Normal Saline (.9% NaCl) 100cc 20 ga Site: Hand-Left,Response: UnchangedSucceeded, 10:50,BP: / M,PULSE: 151,RR: R,SPO2: 98 Ox,ETCO2: ,BG: ,PAIN: ,GCS: , 10:53,BP: / M,PULSE: 152,RR: R,SPO2: 94 Ox,ETCO2: ,BG: ,PAIN: ,GCS: , 10:56,Ondansetron - 4 Milligrams (mg) - Intravenous (IV),Response: Unchanged 10:58,BP: 212/131 M,PULSE: 144,RR: 20 R,SPO2: 100 Ox,ETCO2: ,BG: ,PAIN: ,GCS: , 10:59,At Destination 11:38,Call Closed Disclaimer v1.1 Copyright 2020 [employer] This EMS Care Summary contains data elements from the applicable legal record (which may be displayed differently). It is designed to provide pertinent information for the following purposes: continuity of care, clinical quality, and state data reporting. The complete legal record is available to ED staff and administrators of the receiving hospital in [employer] Patient Tracker. All data is provided "as is."
[2021-08-28 11:27] LABS: URINE BILIRUBIN NEGATIVE (Negative); URINE BLOOD 1+ (Negative); URINE CLARITY CLEAR; URINE COLOR YELLOW; URINE GLUCOSE-RANDOM* 3+ (Negative); URINE KETONES 1+ (Negative); URINE LEUKOCYTES-REFLEX NEGATIVE (Negative); URINE NITRITE-REFLEX NEGATIVE (Negative); URINE PROTEIN (DIPSTICK) 1+ (Negative); URINE UROBILINOGEN 0.2 E.U./dl (0.2-1.0)
[2021-08-28 11:29] LABS: ABSOLUTE NEUTROPHILS 9.7 thou/uL (1.4-8.2); BASOPHILS 0.3 % (0.0-2.0); EOSINOPHILS 0.3 % (0.0-3.0); HEMATOCRIT 45.5 % (42.0-52.0); HEMOGLOBIN 15.5 gm/dL (14.0-18.0); LYMPHOCYTES 16.6 % (24.0-44.0); MCV 82.5 fL (80.0-100.0); MONOCYTES 8.2 % (1.0-8.0); PLATELET COUNT 333 thou/uL (150-400); POLYS 74.6 % (36.0-66.0); RBC 5.52 mil/uL (4.50-6.00); RDW 15.9 % (10.5-14.5)
[2021-08-28 11:36] LABS: AMP/METHAMP Negative (Negative); BARBITURATES Negative (Negative); BENZODIAZEPINES Negative (Negative); COCAINE Negative (Negative); METHADONE Negative (Negative); OPIATES Negative (Negative); PCP Negative (Negative)
[2021-08-28 11:40] LABS: CALCIUM 9.6 mg/dL (8.5-10.1); CREATININE 1.1 mg/dL (0.7-1.3); POTASSIUM 3.9 mmol/L (3.5-5.1)
[2021-08-28 11:50] LABS: ALBUMIN 3.8 g/dL (3.4-5.0); TOTAL BILIRUBIN 0.8 mg/dL (0.2-1.0); TOTAL PROTEIN 8.6 g/dL (6.4-8.2)
--- NOTE | 2021-08-28 12:39 | 2DMMODE ---
[facility] [address] [place] [address] 2 D/M-MODE ECHOCARDIOGRAM Name: OTILIA ABBASI Room #: REG Braydon#: [id number] Admission: 08/28/21 Attend Phys: Discharge: Date of : 69 Report #: [id number] THIS REPORT FOR: cc: [facility] - Clinic physician unknown [facility] - Clinic physician unknown Carlos Khalil MD [facility] ~ APPROVED REPORT Study performed: 08/28/2021 12:15:02 EXAM: Comprehensive 2D, Doppler, and color-flow Echocardiogram Patient Location: ER Status: stat BSA: 2.13 HR: 122 bpm BP: 201/143 mmHg Rhythm: Sinus Tach Other Information Study Quality: Adequate/limited measurements Technically limited study due to patient experiencing high level of pain. Indications STAT ECHO: Nausea/vomiting/abdominal pain. Hypertensive urgency. Hx: CABG (11/2020), MIs, PCIs, DM, HTN, CVA. 2D Dimensions IVSd: 15.66 (7-11mm) LVDd: 49.00 mm PWd: 8.24 (7-11mm) Ascending Ao: 39.18 (22-36mm) LVDs: 40.81 (25-40mm) Left Atrium: 30.58 (27-40mm) Aortic Root: 41.25 mm Aortic Valve AoV Peak Ezequiel.: 1.15 m/s AO Peak Gr.: 5.25 mmHg Left Ventricle The left ventricle is normal size. Regional wall motion abnormalities are noted. Moderate basal septal hypertrophy is present. Left [facility] [address] [place] [address] 2 D/M-MODE ECHOCARDIOGRAM Name: AYLEENOTILIA TAMAYO Room #: REG [facility].#: [id number] Admission: 08/28/21 Attend Phys: Discharge: Date of : 69 Report #: [id number] ventricular systolic function is moderately decreased.Worse inf wall LVEF is 40%. This study is not technically sufficient to allow evaluation of the LV diastolic function. Right Ventricle The right ventricle is normal size. The right ventricular systolic function is normal. Atria The left atrium size is normal. The right atrium size is normal. Aortic Valve The aortic valve is normal in structure. No aortic regurgitation is present. There is no aortic valvular stenosis. Mitral Valve The mitral valve is normal in structure. There is no mitral valve regurgitation noted. No evidence of mitral valve stenosis. Tricuspid Valve The tricuspid valve is normal in structure. There is no tricuspid valve regurgitation noted. Unable to assess PA pressure. Pulmonic Valve Pulmonic valve is not well visualized. Great Vessels The sinuses are mildly dilate (4.1cm). The ascending aorta is mildly dilated (3.9cm). IVC is not well visualized. Pericardium There is no pericardial effusion. <Conclusion> The left ventricle is normal size. Moderate basal septal hypertrophy is present. Left ventricular systolic function is moderately decreased.Worse inf wall LVEF is 40%. This study is not technically sufficient to allow evaluation of the LV diastolic function. The right ventricle is normal size. The left atrium size is normal. The aortic valve is normal in structure. There is no mitral valve regurgitation noted. [facility] [address] [place] [address] 2 D/M-MODE ECHOCARDIOGRAM Name: OTILIA ABBASI Room #: REG ER [facility].#: [id number] Admission: 08/28/21 Attend Phys: Discharge: Date of : 69 Report #: [id number] There is no tricuspid valve regurgitation noted. Unable to assess PA pressure. The sinuses are mildly dilate (4.1cm). The ascending aorta is mildly dilated (3.9cm). There is no pericardial effusion. <ELECTRONICALLY SIGNED> By: Carlos Khalil MD, FACC 08/28/21 1238 1238 1238 Carlos Khalil MD, FACC /INF
[2021-08-28 13:11] LABS: SQUAMOUS None Seen /LPF (0-3); URINE RBC 1-2 Rare /HPF (NONE SEEN); URINE WBC-REFLEX 0-5 Rare /HPF (0-5)
[2021-08-28 13:12] LABS: BACTERIA-REFLEX None Seen /HPF (None Seen); CASTS None Seen /LPF (None Seen); CRYSTALS None Seen /LPF (None Seen)
--- NOTE | 2021-08-28 13:24 | EKG ---
[place] [address] [facility] [place] [address] ELECTROCARDIOGRAM REPORT Name: OTILIA ABBASI Room #: REG [facility]#: [id number] Admission: 08/28/21 Attend Phys: Discharge: Date of : 69 Report #: [id number] [facility] ED Test Date: 2021-08-28 Test Time: 11:07:50 Pat Name: OTILIA ABBASI Department: Room: Gender: M Performance Test Consultant: ALEXANDRA : 1965 Requested By: Laure Lucero Order Number: [id number] MD: Yazan Dunbar Measurements Intervals [place] Rate: 144 P: 55 NC: 125 QRS: -71 QRSD: 107 T: 106 QT: 284 QTc: 440 Interpretive Statements Sinus tachycardia Left atrial enlargement Left ventricular hypertrophy Compared to ECG 07/27/2017 16:14:34 Atrial abnormality now present Left ventricular hypertrophy now present Sinus rhythm no longer present T-wave abnormality no longer present Electronically Signed On 08-28-2021 13:24:46 CDT by Yazan Dunbar [email or web address] <ELECTRONICALLY SIGNED> By: Yazan Dunbar MD, [facility] 08/28/21 1324 06 06 Yazan Dunbar MD, FACC /EPI
[2021-08-28] MEDS ORDERED: TRAMADOL HCL100 M1 PO (15:18)
[2021-08-28] MEDS ORDERED: PLAVIX 75 MG TA75 MG PO (15:23)
[2021-08-28 18:08] LABS: CALCIUM 9.4 mg/dL (8.5-10.1); POTASSIUM 3.9 mmol/L (3.5-5.1)
[2021-08-28] MEDS ORDERED: BENADRYL ALLERG25 MG PO (21:48)
--- NOTE | 2021-08-28 23:34 | NUR ---
PT ARRIVED TO UNIT APPROX 1999, ICU ADMISSION COMPLETED. PT ON INSULIN GTT AT 8.5 UNITS/HR, BLOOD SUGAR ON ARRIVAL 103, DECREASED GTT. IVF INFUSING. PT REPORTS HX STROKE AND BLE NEUROPATHY MAKING HIM UNABLE TO WALK EXCEPT 1-2 STEPS, OTHERWISE W/C BOUND; REPORTS NOT TAKING COVID VACCINE, WOULD CONSENT TO RECEIVE FLU SHOT WHILE ADMITTED. C/O ABD PAIN AND NAUSEA OFF AND ON FOR THE LAST MONTH, WITH TWO STAYS AT [facility]. PT POOR HISTORIAN REGARDING MEDICATION LIST, WILL NEED FAMILY TO CALL WITH UPDATED LIST IN THE MORNING. 0-SPOKE W/HOOKER UP ERIK, OBTAINED ORDERS FOR HS BENADRYL AND HOME DOSE OF TRAMADOL, WELL PRN HTN MEDS AND CLARIFICATION OF INSULIN GTT/DKA ORDERS. 0-GAVE 15 UNITS LANTUS AND SHUT OFF INSULIN GTT, RECHECK BS IN ONE HOUR.
[2021-08-29] VITALS (15 sets, daily range): BP systolic 116–160; BP diastolic 73–107
[2021-08-29 00:36] LABS: CREATININE 0.8 mg/dL (0.7-1.3); POTASSIUM 3.9 mmol/L (3.5-5.1)
[2021-08-29 00:39] LABS: ALBUMIN 3.3 g/dL (3.4-5.0); MAGNESIUM 1.7 mg/dL (1.8-2.4); PHOSPHORUS 2.4 mg/dL (2.6-4.7); TOTAL BILIRUBIN 0.6 mg/dL (0.2-1.0); TOTAL PROTEIN 7.5 g/dL (6.4-8.2)
[2021-08-29 06:43] LABS: ALBUMIN 3.1 g/dL (3.4-5.0); CALCIUM 8.7 mg/dL (8.5-10.1); CREATININE 0.7 mg/dL (0.7-1.3); PHOSPHORUS 3.4 mg/dL (2.5-4.9); POTASSIUM 4.1 mmol/L (3.5-5.1)
--- NOTE | 2021-08-29 07:11 | EKG ---
[address] [employer] [place] [address] ELECTROCARDIOGRAM REPORT Name: OTILIA ABBASI Room #: 246-P ADM IN M.R.#: [id number] Admission: 08/28/21 Attend Phys: Anurag Zhang MD Discharge: Date of : 69 Report #: [id number] [facility] ED Test Date: 2021-08-28 Test Time: 11:51:36 Pat Name: OTILIA ABBASI Department: Room: Gender: M Election Supervisor: : 1965 Requested By: Laure Lucero Order Number: [id number] MD: Yazan Dunbar Measurements Intervals [place] Rate: 112 P: 49 MN: 149 QRS: -65 QRSD: 119 T: 88 QT: 368 QTc: 503 Interpretive Statements Sinus tachycardia Left atrial enlargement Nonspecific IVCD with LAD Left ventricular hypertrophy Baseline wander in lead(s) I,III,aVL Compared to ECG 08/28/2021 11:07:50 Intraventricular conduction delay now present Electronically Signed On 08-29-2021 7:11:16 CDT by Yazan Dunbar [email or web address] <ELECTRONICALLY SIGNED> By: Yazan Dunbar MD, FACC 08/29/21 0711 1151 1151 Yazan Dunbar MD, FAC /EPI
--- NOTE | 2021-08-29 08:29 | NUR ---
Paged Dr. Zhang in regards to insulin gtt and DKA criteria met. placing orders for sliding scales.
--- NOTE | 2021-08-29 11:49 | NUR ---
Chart review. discussed during los and unit rounds. NADIR. Sadi visited with brian at bedside. He lives at home [place] with his mom and daughter. No longer drives since his stroke, right side is affected. Can stand pivot. Have wheelchair [facility] Had [facility] in the past. no rehab in the past. Dr waller is pcp at the [facility]. Have script coverage from [facility], just need low [place] medication. Going to have my mom and daughter help be set up my medication, since can't feel my fingers since had stroke. I can still do insulin pin for debilities, have a arabella that checks my blood sugar without must stick my finger to check my blood sugar. would like some therapy if i could before going home or hh would be ok if i need it per brian. Will cont. following as needed for dc needs.
--- NOTE | 2021-08-29 12:08 | NUR ---
Talk to house worker general Dayana in regards for MDs wanting patient to go to CCU, she stated 3W is cardiac tele as well. Report called to accepting RN, all questions and concerns were addressed.
--- NOTE | 2021-08-29 13:34 | NUR ---
pt off unit for EGD
[2021-08-30] VITALS (7 sets, daily range): BP systolic 130–156; BP diastolic 85–106
[2021-08-30 05:44] LABS: BASOPHILS 0.3 % (0.0-2.0); EOSINOPHILS 0.1 % (0.0-3.0); HEMATOCRIT 39.3 % (42.0-52.0); LYMPHOCYTES 26.4 % (24.0-44.0); MCH 27.8 pg (26.0-34.0); MCHC 33.4 g/dL (28.0-37.0); MCV 83.4 fL (80.0-100.0); MONOCYTES 9.7 % (1.0-8.0); POLYS 63.5 % (36.0-66.0); RBC 4.71 mil/uL (4.50-6.00); WBC 6.4 thou/uL (4.0-11.0)
[2021-08-30 05:45] LABS: ALBUMIN 3.3 g/dL (3.4-5.0); CALCIUM 9.1 mg/dL (8.5-10.1); CREATININE 0.8 mg/dL (0.7-1.3); POTASSIUM 3.8 mmol/L (3.5-5.1); TOTAL BILIRUBIN 0.6 mg/dL (0.2-1.0); TOTAL PROTEIN 7.3 g/dL (6.4-8.2)
[2021-08-30 05:46] LABS: HEMOGLOBIN 13.1 gm/dL (14.0-18.0); PLATELET COUNT 223 thou/uL (150-400)
--- NOTE | 2021-08-30 07:12 | NUR ---
PT STATED GOAL FOR THE NIGHT WAS TO "GET SOME SLEEP" BEFORE PLANNED PIPIDA 08/30. PT REQUESTED SHOWER, WAS ASSISTED WITH SHOWER AT APPROXIMATELY 2200. PT WAS SBA FOR TRANSFER TO WHEELCHAIR, THEN EXTENSIVE ASSIST X1 WITH TRANSFER FROM W/C TO SHOWER CHAIR. PT WITH NIGHT SWEATS (ALSO NOTED IN PHYSICIAN DOCUMENTATION) AROUND 0000. NURSE OFFERED LINEN CHANGE AT THAT TIME, BUT PT REFUSED. PT DID ALLOW PARTIAL LINEN CHANGE AT APPROX 0400. PT COMPLAINED OF LEFT ANKLE PAIN, REQUESTED TRAMADOL. PT PROVIDED EDUCATION REGARDING UPCOMING PIPIDA PROCEDURE, INCLUDING CONTRAINDICATION OF OPIODS PRIOR TO THIS TEST. PT WAS OFFERED AND RECEIVED TYLENOL 650MG WITH PARTIAL RELIEF. SNR ON MONITOR. WILL CONTINUE TO MONITOR.
--- NOTE | 2021-08-30 10:02 | NUR ---
THIS RN SPOKE WITH DR KIM RE: JUAN CARLOS AVENDAÑO. UNABLE TO VERIFY IF NM STAFF ABLE TO PERFORM SCAN DUE TO WEEKEND SCHEDULE. DR KIM OK TO ADVANCE DIET AND WILL FURTHER EVAL/DISCUSS WITH PT DURING ROUNDS.
[2021-08-30] MEDS ORDERED: COREG6.25 MG PO (14:52)
--- NOTE | 2021-08-30 16:22 | NUR ---
PT ALERT AND ORIENTED X 4. PT DISCONTENTED WITH MEAL PLAN, BEING HEART HEALTHY AND DIABETIC DIET, AND DECIDED WITH DR TO DISCHARGE AND GET PIPIDA SCAN DONE ON AN OUTPATIENT BASIS. DISCHARGE CONSENTS IN PT CHART. DISCUSSED DISCHARGE PLAN, INCLUDING NEW MEDICATION INFORMATION, WELL FOLLOW UP APPOINTMENTS. PT COMMUNICATES UNDERSTANDING OF RECOMENDATIONS. IV DISCONTINUED, PT TOLERATED WELL.
--- NOTE | 2021-09-01 19:06 | PATH ---
[facility] [place] [address] [place] [address] PATHOLOGY RPT PROCEDURE Name: OTILIA MANZANARES Room #: 361-P DIS IN M.R.#: [id number] Admission: 08/28/21 Date of : 69 Discharge: 08/30/21 Report #: [id number] Path Case #: [id number] [facility] Accession Number: [id number] . 01 Material submitted: . PART A: duodenum - DUODENAL BIOPSY R/O SPRUE PART B: gastrointestinal site - GASTRITIS BIOPSY R/O H. PYLORI . 01 Clinical history: . ESOPHAGOGASTRODUODENOSCOPY ABD PAIN, PAIN AFTER EATING GASTRITIS . 02 Diagnosis: A. Small bowel mucosa, duodenum R/O sprue, endoscopic biopsy: - Nonspecific mild chronic inflammation with focal fundic-type metaplasia. - Negative for villous blunting or increase in intraepithelial lymphocytes. . B. Gastric mucosa, gastritis R/O H. pylori, endoscopic biopsy: - Mild chronic gastritis. - Negative for intestinal metaplasia or atrophy. - Negative for Helicobacter pylori (properly controlled immunohistochemical stain performed). (IUV:des; 09/01/2021) QMS 09/01/2021 1241 Local . 02 Electronically signed: . Linda Pittman MD, Pathologist NPI- [id number] . 01 Gross description: . A. Received in formalin labeled "Otilia Manzanares, duodenal BX rule out sprue" are multiple casarez-brown soft tissue fragments measuring in aggregate 0.7 x 0.4 x 0.1 cm. The specimen is submitted entirely in A1. . B. Received in formalin labeled "Otilia Manzanares, gastric BX rule out H. pylori" are multiple casarez-brown soft tissue fragments measuring in aggregate 1.6 x 0.3 x 0.1 cm. The specimen is submitted entirely in B1. ([facility]; 08/30/2021) [facility] 08/30/2021 1147 Local . 02 Pathologist provided ICD-10: K29.80, K29.50 . 02 CPT . 812365, 295119, [id number] [place] [address] PATHOLOGY RPT PROCEDURE Name: OTILIA MANZANARES Room #: 361-P DIS IN M.R.#: [id number] Admission: 08/28/21 Date of : 69 Discharge: 08/30/21 Report #: [id number] Path Case #: [id number] Specimen Comment: A courtesy copy of this report has been sent to [phone], [phone] Specimen Comment: [phone] Specimen Comment: Report sent to DR. BOOTH / DR KIM Specimen Comment: Report sent to Performed at: [address], [place] [id number] MD Faustino Subramanian MD Phone: [phone] Performed at: [address] [id number] MD Linda Pittman MD Phone: [phone]
--- NOTE | 2021-09-05 08:20 | P ---
[facility] [address] [address] [place] [address] PROCEDURE REPORT Name: OTILIA ABBASI Room #: 361-P [facility] [place] M.R.#: [id number] Admission: 08/28/21 Attend Phys: Anurag Zhang MD Discharge: 08/30/21 Date of : 69 Report #: [id number] THIS REPORT FOR: cc: [facility] - Clinic physician unknown [facility] - Clinic physician unknown Kiran Sage MD ~ cc: Anurag Zhang MD DATE OF SERVICE: 08/29/2021 PROCEDURE PERFORMED: Upper endoscopy with biopsies. HISTORY OF PRESENT ILLNESS: The patient is a 56-year-old male with a history of intermittent abdominal pain, which can be severe at times. He has multiple medical problems including diabetes, coronary artery disease status post CABG. 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 He is on PPI therapy. He is unsure when his last upper endoscopy was performed. Colonoscopy within the last 5 years. 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 Dr. Horvath was consulted. 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 The patient has numerous collateral vessels and the artery stenosis would not likely be significant. Plan is for upper endoscopy. DESCRIPTION OF PROCEDURE: The risks and benefits of the procedure were explained to the patient, those risks including but not limited to bleeding, perforation and the risk of sedation. He understood these risks and gave informed consent. Sedation was given using propofol per anesthesia. Next, using a standard Olympus upper endoscope, the scope was placed in the patient's mouth and advanced under direct vision through the esophagus, stomach and into the second portion of the duodenum. The larynx was normal in appearance. The esophagus was normal throughout. The GE junction was normal. Overall, there was a mild gastritis in the fundus and body. Biopsies were obtained. No evidence of ulcerations or erosions. The gastric antrum was normal. The pylorus was normal and patent. The duodenal bulb, first and second portion were all normal. Random biopsies were also obtained to rule out the possibility of celiac sprue. The scope was then withdrawn and the procedure terminated. The patient tolerated the procedure well. IMPRESSION: 1. Mild gastritis. 2. Otherwise, normal upper endoscopy. RECOMMENDATIONS: [address] [address] PROCEDURE REPORT Name: OTILIA ABBASI Room #: 361-P DIS IN M.R.#: [id number] Admission: 08/28/21 Attend Phys: Anurag Zhang MD Discharge: 08/30/21 Date of : 69 Report #: [id number] 1. Await biopsy results. 2. Continue daily PPI therapy. 3. Etiology of abdominal pain is unclear. Would recommend proceeding with a PIPIDA scan. 4. Gallbladder on CT was normal. If the patient also has recurrent nausea and vomiting, we may need to consider gastric emptying study at some point. Thank you for allowing me to participate in his care. <ELECTRONICALLY SIGNED> By: Kiran Sage MD 09/05/21 0820 1506 [id number] Kiran Sage MD /nt
== END 2021-08-30 16:45 | disposition home or self-care (01) | DRG 391 ==
LOC: ER 11:02 → ICU 15:11 → ER 19:58 → ICU 19:58 → 3W 08-29 12:44
PROVIDERS: Emergency Medicine; Nurse Practitioner Family; ADMIT Hospitalist; ATTEND Hospitalist
DX: I77.4 Celiac artery compression syndrome (principal); E11.10 Type 2 diabetes mellitus with ketoacidosis without coma; I16.0 Hypertensive urgency; I10 Essential (primary) hypertension; E11.42 Type 2 diabetes mellitus with diabetic polyneuropathy; E78.5 Hyperlipidemia, unspecified; I25.10 Atherosclerotic heart disease of native coronary artery without angina pectoris; K29.70 Gastritis, unspecified, without bleeding; Z20.822 Contact with and (suspected) exposure to COVID-19; D72.829 Elevated white blood cell count, unspecified; E11.51 Type 2 diabetes mellitus with diabetic peripheral angiopathy without gangrene; Z95.1 Presence of aortocoronary bypass graft; Z86.73 Personal history of transient ischemic attack (TIA), and cerebral infarction without residual deficits; I25.2 Old myocardial infarction; Z95.5 Presence of coronary angioplasty implant and graft; Z88.6 Allergy status to analgesic agent; Z88.8 Allergy status to other drugs, medicaments and biological substances; Z82.49 Family history of ischemic heart disease and other diseases of the circulatory system; Z23 Encounter for immunization
CPT/HCPCS: 10078; 10879; 62110; 62900; 70005